=== PATIENT | male | born 1960 | race Caucasian/White ===

== ENCOUNTER → 2025-03-19 | Day surgery (SDC) | payer MEDICARE ==
[~2025-03-19] MED LIST: AMLODIPINE BESY10 MG PO; GABAPENTIN400 MG PO; LANTUS 3ML100 UNITS/ SQ; LASIX20 MG PO; LIDOCAINE HCL 2% LOCAL INJ 5 ML SDV VIAL INJ ONE; LIPITOR20 MG PO; LOSARTAN POTASS25 MG PO; MELOXICAM15 MG PO; NOVOLOG MI100 UNIT/1 SC; OMEPRAZOLE40 MG PO; PROPOFOL IV EMULSION 10 MG/ML 20 ML VIAL ONE; VITAMIN B-121000 MCG PO
[2025-03-19] MEDS: LACTATED RINGER'S 1,000 ML ONE (11:31)
[2025-03-19 11:57] VITALS: TEMP 97.6
[2025-03-19 12:25] VITALS: BP 165/81; PULSE 60; RESP 16; O2SAT 96
== END | disposition home or self-care (01) ==
LOC: OR 08:35
PROVIDERS: ATTEND Internal Medicine Gastroenterology
DX: Z12.11 Encounter for screening for malignant neoplasm of colon (principal); K63.5 Polyp of colon; K64.1 Second degree hemorrhoids; R94.31 Abnormal electrocardiogram [ECG] [EKG]; I10 Essential (primary) hypertension; E78.00 Pure hypercholesterolemia, unspecified; E11.9 Type 2 diabetes mellitus without complications; Z79.4 Long term (current) use of insulin; K21.9 Gastro-esophageal reflux disease without esophagitis; E66.01 Morbid (severe) obesity due to excess calories; Z68.29 Body mass index [BMI] 29.0-29.9, adult; Z79.899 Other long term (current) drug therapy
CPT/HCPCS: 36415; 45385; 82948; 93005; J2003; J2704; J7121